=== PATIENT | male | born 1985 | race Asian ===

== ENCOUNTER 2020-03-19 18:03 | Emergency (ER) | payer OTHER ==
[~2020-03-19] VITALS: Ht 170.2 cm; Wt 56.7 kg
[2020-03-19 18:09] VITALS: Ht 170.2 cm; Wt 56.7 kg
[2020-03-19 23:28] LABS: BASOPHIL % 0.3 % (0-2); PLATELET COUNT 178 x10^3mcL (130-400); RED CELL DISTRIBUTION WIDTH 12.4 % (11.5-14.5)
[2020-03-19 23:44] LABS: CALCIUM 8.7 mg/dL (8.5-10.1); CARBON DIOXIDE 30.2 mmol/L (21-32); CHLORIDE SERUM 105 mmol/L (98-107); CREATININE SERUM 0.8 mg/dL (0.7-1.3); GFR1 > 60 mL/min; GLUCOSE SERUM 93 mg/dL (74-106); POTASSIUM SERUM 4.3 mmol/L (3.5-5.1); SODIUM SERUM 144 mmol/L (136-145)
[2020-03-19 23:47] LABS: ALBUMIN 4.5 g/dL (3.4-5.0); ALKALINE PHOSPHATASE 53 U/L (46-116); ALT/SGPT 29 U/L (16-63); AST/SGOT 18 U/L (15-37); BILIRUBIN TOTAL 0.6 mg/dL (0.20-1.00); CHOLESTEROL 169 mg/dL (<200); CHOLESTEROL/HDL RATIO 2.9; HDL CHOLESTEROL 59 mg/dL (40-60); LIPASE 108 IU/L (73-393); TOTAL PROTEIN, SERUM 7.3 g/dL (6.4-8.2); TRIGLYCERIDES 90 mg/dL (<150)
[2020-03-20 00:07] LABS: T3 TOTAL 1.29 ng/mL
[2020-03-20 00:17] LABS: FREE T4 1.06 ng/dL (0.76-1.46); FREE THYROXINE INDEX 3.2 ug/dL (1.4-4.5)
[2020-03-20 00:45] VITALS: BP 111/87
== END 2020-03-20 00:45 | disposition home or self-care (01) ==
LOC: ED 18:03
PROVIDERS: Specialist
DX: R55 Syncope and collapse (principal)
CPT/HCPCS: 83880; 84439; Q0092

== ENCOUNTER 2020-03-29 01:21 | Emergency (ER) | payer OTHER ==
[~2020-03-29] VITALS: Ht 170.2 cm; Wt 56.7 kg
[2020-03-29 01:25] VITALS: Ht 170.2 cm; Wt 56.7 kg
[2020-03-29 02:04] LABS: BASOPHIL % 0.2 % (0-2); PLATELET COUNT 182 x10^3mcL (130-400); RED CELL DISTRIBUTION WIDTH 12.3 % (11.5-14.5)
[2020-03-29 02:10] LABS: CALCIUM 8.4 mg/dL (8.5-10.1); CARBON DIOXIDE 27.3 mmol/L (21-32); CHLORIDE SERUM 104 mmol/L (98-107); CREATININE SERUM 0.9 mg/dL (0.7-1.3); GFR1 > 60 mL/min; GLUCOSE SERUM 114 mg/dL (74-106); POTASSIUM SERUM 3.4 mmol/L (3.5-5.1); SODIUM SERUM 141 mmol/L (136-145)
[2020-03-29 02:15] LABS: ALBUMIN 4.5 g/dL (3.4-5.0); ALKALINE PHOSPHATASE 56 U/L (46-116); ALT/SGPT 30 U/L (16-63); AST/SGOT 18 U/L (15-37); BILIRUBIN TOTAL 0.97 mg/dL (0.20-1.00); MAGNESIUM 2.2 mg/dL (1.8-2.4); TOTAL PROTEIN, SERUM 7.3 g/dL (6.4-8.2)
[2020-03-29 02:22] LABS: AMPHETAMINE QUAL UR NONE DETECTED (See below)
[2020-03-29 02:27] LABS: T3 TOTAL 1.04 ng/mL
[2020-03-29 02:40] LABS: FREE T4 1.36 ng/dL (0.76-1.46); FREE THYROXINE INDEX 3.5 ug/dL (1.4-4.5); T4(THYROXINE) 9.3 ug/dL (4.7-13.3)
[2020-03-29 03:53] VITALS: BP 113/76
== END 2020-03-29 03:53 | disposition home or self-care (01) ==
LOC: ED 01:21
PROVIDERS: Emergency Medicine
DX: R55 Syncope and collapse (principal); R00.2 Palpitations
CPT/HCPCS: 84439; Q0092